=== PATIENT | male | born 1970 | race African-American/Black ===

== ENCOUNTER 2018-04-11 07:41 | Emergency (ER) | payer OTHER ==
[~2018-04-11] VITALS: Ht 182.9 cm; Wt 111.1 kg
[2018-04-11] MEDS ORDERED: IBUPROFEN 200200 M1 PO (07:52)
[2018-04-11] MEDS ORDERED: PREDNISONE 20 M20 MG PO (08:03)
[2018-04-11] MEDS ORDERED: FLEXERIL PO (08:03)
[2018-04-11 08:30] VITALS: BP 134/101
== END 2018-04-11 08:30 | disposition home or self-care (01) ==
LOC: ER 07:41
DX: M54.5 Low back pain (principal)